=== PATIENT | female | born 1955 | race Caucasian/White ===

== ENCOUNTER 2018-06-23 00:53 | Day surgery (SDC) | payer BC ==
[2018-06-23] VITALS (10 sets, daily range): BP systolic 99–111; BP diastolic 60–80
[~2018-06-23] VITALS: Ht 147.3 cm; Wt 50.8 kg
[~2018-06-23 00:53] MED LIST: ALB6.7R INH; CHOL10005 PO; CLON-327 PO; CYAN250013 PO; DEXT-60 PO; DICY10CA11 PO; FLU150 PO; FOLI-68 PO; FURO-47 PO; LOPE1LIQ49 PO; MULT-68 PO; PANT40TA65 PO
[2018-06-23] MEDS ORDERED: ROPIVACAINE 0.2% 20 ML VIAL ONE (06:31)
[2018-06-23] MEDS ORDERED: LIDOCAINE/SOD BICARB 8.4% SYR ID ONE (07:10)
[2018-06-23] MEDS ORDERED: CLINDAMYCIN(*) 600 MG/NS 50 ML 50 ML IVPB ONE (07:10)
[2018-06-23] MEDS ORDERED: MIDAZOLAM 2 MG/2 ML VIAL IVP PRN (07:10)
[2018-06-23] MEDS ORDERED: NORMOSOL R SOLN(*) 1000 ML BAG 1,000 ML IV PRN (07:10)
[2018-06-23] MEDS ORDERED: LIDOCAINE MPF 1% 5 ML VIAL ONE (08:11)
[2018-06-23] MEDS ORDERED: fentaNYL CITR 100 MCG/2 ML AMP ONE (08:11)
[2018-06-23] MEDS ORDERED: KETAMINE HCL-NS 50 MG/5 ML SYR ONE (08:11)
[2018-06-23] MEDS ORDERED: DEXAMETHASONE SOD PHOS 10MG/ML ONE (08:11)
[2018-06-23] MEDS ORDERED: ONDANSETRON 4 MG/2 ML VIAL ONE (08:11)
[2018-06-23] MEDS ORDERED: PROPOFOL EMUL(*) 10MG/ML 20 ML 20 ML ONE (08:11)
[2018-06-23] MEDS ORDERED: ePHEDrine 25 MG/5 ML DISP.SYR IVP ONE (08:42)
[2018-06-23] MEDS ORDERED: TRAM-420 PO (09:54)
[2018-06-23] MEDS ORDERED: KETOROLAC 30 MG/ML VIAL ONE (09:55)
--- NOTE | 2018-06-23 10:27 | OPERATIVE REPORT 1 ---
EVENT DATE: June 23, 2018 SURGEON: Raghav Ashby MD ANESTHESIOLOGIST: Rubén Hensley MD ANESTHESIA: extension course counselor: JAILENE Zavala PREOPERATIVE DIAGNOSIS Recurrent ganglion cyst. POSTOPERATIVE DIAGNOSIS Recurrent ganglion cyst. PROCEDURE PERFORMED Debridement of large recurrent ganglion cyst. ESTIMATED BLOOD LOSS Minimal. FLUIDS Minimal. DESCRIPTION OF PROCEDURE The patient was brought to the operating room and placed in the supine position with a bump placed under her right lower extremity. She was prepped and draped in the normal sterile fashion using Prevail. Sterile stockinettes and U-drape were placed on the lower extremity. Stockinette was incised from above knee and held with Coban. Esmarch was then used to exsanguinate the lower extremity and tourniquet turned up to 300 mmHg. The incision was made directly over the cyst. As I got in there, I was able to find the cyst and take it all the way down. There was this very large cavity, a very large cyst, probably something in the order of 2-3 cm x 2 cm, right over the talonavicular side which correlated with the MRI appropriately. I was able to follow the cyst all the way down. Once I was down there, I then removed any lining of the cyst that I could find. I found that there was an opening through the navicular talar area of the joint, which I was able to debride, and then I closed that area including the large vacuole with a 3-0 Vicryl stitch. Multiple stitches were done, deep layers coming up to proximal to close this large opening. Once I had removed all that, I then closed the upper layer to make sure this did not recur and then we closed the skin using simple Nylon stitches. Adaptic 4 x 4's, big bulky dressing with a boot. Patient to recovery with no complications. MTDD
--- NOTE | 2018-06-23 10:57 | NUR ---
AROUSES. VERY DROWSY. ENCOURAGED TO DO DEEP BREATHING EXERCISES. DRINKING JUICE. MINIMAL PAIN TO FOOT. 05/25. REVIEWED DISCHARGE INSTRUCTIONS WITH PT.
[2018-06-23] MEDS ORDERED: PROMETHAZINE 25 MG/ML 1 ML AMP ONE (11:50)
--- NOTE | 2018-06-23 11:53 | NUR ---
REPORTS SEVERE NAUSEA. MEDICATED C PHENERGAN. USING QUEASEASE AND INCREASED IV FLUIDS.
== END 2018-06-23 10:30 | disposition home or self-care (01) ==
LOC: OR 00:53
PROVIDERS: ATTEND Orthopaedic Surgery
DX: M67.471 Ganglion, right ankle and foot (principal); E11.9 Type 2 diabetes mellitus without complications; I10 Essential (primary) hypertension
CPT/HCPCS: 28090; 36416; 76942; 82948; J1100; J2001; J2250; J2370; J2405; J2550; J2704; J2795; J3010; J3490